=== PATIENT | male | born 1960 | race Caucasian/White ===

== ENCOUNTER 2020-07-13 06:00 | Outpatient (RCR) | payer OTHER, SELFPAY | END 2020-07-22 23:59 | disposition home or self-care (01) | LOC: GPT 06:00 | PROVIDERS: Referring Provider Orthopaedic Surgery; Visit Provider Orthopaedic Surgery | DX: Z47.89 Encounter for other orthopedic aftercare (principal) | CPT/HCPCS: 97110; 97112; 97161; 97530; G0283 ==

== ENCOUNTER 2020-07-23 06:00 | Outpatient (RCR) | payer OTHER, SELFPAY | END 2020-08-22 23:59 | disposition home or self-care (01) | LOC: GPT 06:00 | PROVIDERS: Referring Provider Orthopaedic Surgery; Visit Provider Orthopaedic Surgery | DX: Z47.89 Encounter for other orthopedic aftercare (principal) | CPT/HCPCS: 97110 ==

== ENCOUNTER 2021-05-01 15:55 | Outpatient (CLI) | payer OTHER, SELFPAY ==
--- NOTE | 2021-05-01 16:33 | XR_ITS ---
WS: [id number] LATERAL LUMBAR SPINE: 3 view. Lateral radiographs are performed in upright neutral, flexion and extension to the patient's toleranc e. HISTORY: VERTEBROGENIC LOW BACK PAIN COMPARISON: None available. Mild straightening of the normal lumbar lordosis. Normal posterior alignment. Disc spaces are moderat genaro narrowed throughout but greatest at L5-S1. Mild facet joint arthritis and narrowing throughout th e lumbar spine. With flexion and extension there is no significant instability. Scattered calcifications within the aorta. XR/XR lumbar spine f/e only [id number] IMPRESSION: 1. No lumbar spine instability. 2. Mild diffuse spondylosis.
== END 2021-05-01 15:56 | disposition home or self-care (01) ==
LOC: RAD 15:59
PROVIDERS: PCP Family Medicine; Visit Provider Nurse Practitioner
DX: M54.51 Vertebrogenic low back pain (principal); M47.816 Spondylosis without myelopathy or radiculopathy, lumbar region
CPT/HCPCS: 72120